=== PATIENT | male | born 1995 | race Two or more races ===

== ENCOUNTER 2020-06-14 14:43 | Emergency (ER) | payer OTHER ==
[~2020-06-14] VITALS: Ht 190.5 cm; Wt 90.2 kg
[2020-06-14] MEDS ORDERED: DEXAMETHASONE 4 MG/ML, 1ML IM ONE (16:00)
[2020-06-14 16:12] LABS: BASOPHILS % (AUTO) 1 % (0-1); EOSINOPHILS % (AUTO) 1 % (1-7); LYMPHOCYTES % (AUTO) 18 % (22-44); MEAN CORPUSCULAR HGB CONC 33.2 g/dL (33.2-36.2); MEAN PLATELET VOLUME 7.8 fL (7.4-10.4); MONOCYTES % (AUTO) 12 % (2-9); NEUTROPHILS % (AUTO) 69 % (42-75); PLATELET COUNT 239 x10^3/uL (130-400); RED BLOOD COUNT 5.12 x10^6/uL (4.38-5.82)
[2020-06-14 16:13] LABS: ALBUMIN 3.9 g/dL (3.4-5.0); CALCIUM 9.4 mg/dL (8.5-10.1); CHLORIDE 107 mmol/L (98-107); MD NO
[2020-06-14 16:22] LABS: ANION GAP 3 mmol/L (5-15)
[2020-06-14] MEDS ORDERED: OMNIPAQUE 350 MG/ML, 100ML BOTTLE ONE (18:00)
--- NOTE | 2020-06-14 18:18 | NUR ---
TO ROOM FROM LOBBY.
--- NOTE | 2020-06-14 19:04 | NUR ---
PIV ACCESS. PT IN [place] AND [place] AND VERBALIZES UNDERSTANDING OF POC. PT HAS CALL LIGHT WITHIN REACH AT THIS TIME.
--- NOTE | 2020-06-14 19:16 | NUR ---
PT BACK FROM CT AT THIS TIME.
[2020-06-14] MEDS ORDERED: BENZOCAINE AEROSOL SPRAY 20%, 60ML ONE (19:57)
[2020-06-14] MEDS ORDERED: DEXAMETHASONE 4 MG/ML, 5ML ONE (19:58)
[2020-06-14] MEDS ORDERED: CEFTRIAXONE PMX 1GM/50ML 50 ML ONE (19:58)
[2020-06-14] MEDS ORDERED: CEFTRIAXONE PMX 1GM/50ML 50 ML IV ONE (20:00)
[2020-06-14] MEDS ORDERED: DEXAMETHASONE 4 MG/ML, 1ML IVPush ONE (20:00)
[2020-06-14] MEDS ORDERED: BENZOCAINE AEROSOL SPRAY 20%, 60ML TP ONE (20:00)
[2020-06-14] MEDS ORDERED: LIDOCAINE 1%-EPI 1:100K, 20ML INFIL ONE (20:00)
--- NOTE | 2020-06-14 22:23 | NUR ---
PT D/C WITH D/C SUMMARY AND SCRIPTS. ALL QUESTIONS ANSWERED. PT AMBULATES TO REGISTRATION DESK WITH STEADY GAIT FOR D/C HOME AND DENIES ANY OTHER NEEDS PERTAINING TO THIS VISIT.
[2020-06-14 22:26] VITALS: BP 137/79
== END 2020-06-14 22:28 | disposition home or self-care (01) ==
LOC: ED 18:00
DX: J36 Peritonsillar abscess (principal)
CPT/HCPCS: 36415; 42700; 70491; 80048; 82040; 85025; 87070; 87081; 87205; 87880; 96365; 96366; 96375; 99285; J0696; J1100; Q9967